=== PATIENT | male | born 1935 | race Caucasian/White ===

== ENCOUNTER → 2016-08-17 | Outpatient (CLI) | payer MEDICARE ==
[~2016-08-17] MED LIST: ARICEPT23 MG PO; ASPI325T6 PO; ASPIRIN 81M81 MG/TA2 PO; CALCIUM 600600 MG PO; CASODEX 50MG TA50 MG PO; CENTRUM SILVER1 TAB; CEPHALEXIN500 M1 PO; COUMADIN 2MG2 MG/TAB PO; COUMADIN 5MG5 MG/TAB PO; ELIQUIS 5MG PO; FLAX OIL1000 MG PO; FLOMAX 0.40.4 MG/CAP PO; LASIX 20MG TABL20 MG PO; LIPITOR 40MG TA40 MG PO; LOVENOX 6060 MG/0.6 SQ; NATURAL E400 IU PO; NORCO 325 MG-51 TAB PO; OXYCONTIN30 MG PO; PRILOSEC 20MG20 MG PO; PROAIR HFA0.09 MG/AC IH; THE MEDICINE S300 M1 PO; TOPROL XL 25MG25 MG PO; VITAMIN D1000 IU PO; VITAMINC1000TA PO; XGEVA120 MG/1.7 SC; XTANDI40 MG PO; ZESTRIL 5MG5 MG PO; ZITHROMAX 250M250 MG PO; ZOLOFT 50MG50 MG PO; [UNRECOGNIZED DRUG - OTHER] IM
== END ==
LOC: COL.RAD 08:45
DX: C61 Malignant neoplasm of prostate (principal); C79.51 Secondary malignant neoplasm of bone
CPT/HCPCS: A9503

== ENCOUNTER 2016-10-16 18:04 | Emergency (ER) | payer MEDICARE ==
[~2016-10-16] VITALS: Ht 185.4 cm; Wt 103.2 kg
[~2016-10-16 18:04] MED LIST changes: -PROAIR HFA0.09 MG/AC IH; -ZITHROMAX 250M250 MG PO; -[UNRECOGNIZED DRUG - OTHER] IM
[2016-10-16 18:08] VITALS: TEMP 101.2
[2016-10-16] MEDS ORDERED: XGEVA120 MG/1.7 SC (18:18)
[2016-10-16 18:28] LABS: HEMATOCRIT 38.1 % (42.0-52.0); HEMOGLOBIN 12.5 g/dl (13.5-18.0); MEAN CELL VOLUME 93 fl (80.0-100.0); MEAN CORPUSCULAR HEMOGLOBIN 30 pg (27.0-31.0); MEAN CORPUSCULAR HGB CONC 33 g/dl (33.0-37.0); MEAN PLATELET VOLUME 10.5 fl (7.4-10.4); PLATELET COUNT 164 K/mm3 (130-400); RED BLOOD COUNT 4.11 M/mm3 (4.20-5.60); REDCELL DISTRIBUTION WIDTH-CV 14.6 % (11.5-14.5); WHITE BLOOD COUNT 5.4 K/mm3 (4.8-10.8)
[2016-10-16] MEDS ORDERED: [UNRECOGNIZED DRUG - OTHER] IM (18:31)
[2016-10-16 18:33] LABS: ADD PATHOLOGY DIFF REVIEW NO
[2016-10-16 18:37] LABS: ALBUMIN 4.2 gm/dL (3.5-5.0); BILIRUBIN,TOTAL 1.1 mg/dL (0.0-1.0); CALCIUM 9.2 mg/dL (8.4-10.2); CREATININE, serum 0.77 mg/dL (0.66-1.25); POTASSIUM 4.3 mmol/L (3.4-5.0); TOTAL PROTEIN 7.7 gm/dL (6.4-8.2)
[2016-10-16 18:49] LABS: TROPONIN-I 0.019 ng/mL (0.000-0.034)
[2016-10-16 18:53] LABS: BAND 1 % (0-10); BASOPHIL 1 % (0-2); NEUTROPHILS 57 % (42.0-75.2); TOTAL CELLS COUNTED 100
[2016-10-16 19:08] LABS: PH 6 (5-8); SQUAMOUS EPITHELIAL None Seen /hpf; URINE APPEARANCE Clear; URINE BACTERIA None Seen /hpf; URINE BILIRUBIN Negative (NEGATIVE); URINE BLOOD 1+ (NEGATIVE); URINE COLOR Yellow; URINE GLUCOSE Negative (NEGATIVE); URINE KETONE Negative (NEGATIVE); URINE UROBILINOGEN Negative (NEGATIVE); URINE WBC 0-2 /hpf
[2016-10-16 19:54] VITALS: BP 126/86; PULSE 84
[2016-10-16] MEDS ORDERED: ZITHROMAX 250M250 MG PO (20:09)
[2016-10-16] MEDS ORDERED: PROAIR HFA0.09 MG/AC IH (20:11)
== END 2016-10-16 20:24 | disposition home or self-care (01) ==
LOC: COL.ER 18:04
PROVIDERS: Emergency Medicine
DX: R06.02 Shortness of breath (principal); I48.91 Unspecified atrial fibrillation; Z95.810 Presence of automatic (implantable) cardiac defibrillator; I50.9 Heart failure, unspecified; Z86.73 Personal history of transient ischemic attack (TIA), and cerebral infarction without residual deficits; Z85.46 Personal history of malignant neoplasm of prostate
CPT/HCPCS: J0696; J7050

== ENCOUNTER → 2017-02-05 | Outpatient (CLI) | payer MEDICARE ==
[~2017-02-05] MED LIST changes: +PROAIR HFA0.09 MG/AC IH; +ZITHROMAX 250M250 MG PO; +[UNRECOGNIZED DRUG - OTHER] IM
== END ==
LOC: COL.RAD 09:16
DX: C79.51 Secondary malignant neoplasm of bone (principal); J90 Pleural effusion, not elsewhere classified; I51.7 Cardiomegaly; M47.812 Spondylosis without myelopathy or radiculopathy, cervical region; M47.814 Spondylosis without myelopathy or radiculopathy, thoracic region; R91.8 Other nonspecific abnormal finding of lung field; K80.20 Calculus of gallbladder without cholecystitis without obstruction; N28.1 Cyst of kidney, acquired; I72.3 Aneurysm of iliac artery; I71.4 Abdominal aortic aneurysm, without rupture; R19.09 Other intra-abdominal and pelvic swelling, mass and lump; M17.12 Unilateral primary osteoarthritis, left knee; M19.011 Primary osteoarthritis, right shoulder; M19.012 Primary osteoarthritis, left shoulder; Z87.81 Personal history of (healed) traumatic fracture; Z95.0 Presence of cardiac pacemaker; Z85.46 Personal history of malignant neoplasm of prostate; Z96.651 Presence of right artificial knee joint; Z90.79 Acquired absence of other genital organ(s)
CPT/HCPCS: A9503; Q9967

== ENCOUNTER → 2017-06-03 | Outpatient (CLI) | payer MEDICARE | LOC: COL.RAD 09:48 | DX: C61 Malignant neoplasm of prostate (principal); C79.51 Secondary malignant neoplasm of bone; J90 Pleural effusion, not elsewhere classified; J98.4 Other disorders of lung; K76.89 Other specified diseases of liver; I71.4 Abdominal aortic aneurysm, without rupture; I72.3 Aneurysm of iliac artery | CPT/HCPCS: J7050; Q9967 ==

== ENCOUNTER 2017-06-20 13:42 | Inpatient (IN) | payer MEDICARE ==
[~2017-06-20] VITALS: Ht 185.4 cm; Wt 105.4 kg
[~2017-06-20 13:42] MED LIST changes: +NATURAL FISH1000 MG PO; -THE MEDICINE S300 M1 PO; +XGEVA120 MG/1.7 SQ; +ZOLADEX SQ; -[UNRECOGNIZED DRUG - OTHER] IM
[2017-06-20 14:16] LABS: BASO # 0.1 (0.0-0.2); BASO % 0.9 % (0.0-2.0); EOS % 0.7 % (0-4.0); GRAN # 3.4 (1.4-6.5); GRAN % 59.3 % (42.2-75.2); HEMATOCRIT 39.1 % (42.0-52.0); HEMOGLOBIN 12.5 g/dl (13.5-18.0); LYMPH # 1.4 (1.2-3.4); LYMPH % 24.2 % (20.0-51.0); MEAN CELL VOLUME 95 fl (80.0-100.0); MEAN CORPUSCULAR HEMOGLOBIN 30 pg (27.0-31.0); MEAN CORPUSCULAR HGB CONC 32 g/dl (33.0-37.0); MEAN PLATELET VOLUME 10.9 fl (7.4-10.4); MONO # 0.8 (0.1-0.6); MONO % 14.5 % (1.7-9.3); PLATELET COUNT 168 K/mm3 (130-400); RED BLOOD COUNT 4.11 M/mm3 (4.20-5.60); WHITE BLOOD COUNT 5.7 K/mm3 (4.8-10.8)
[2017-06-20] MEDS ORDERED: NAMENDA 10MG TA10 MG PO (14:19)
[2017-06-20 14:27] LABS: ADJUSTED CALCIUM 9.1 mg/dL (8.4-10.2); ALBUMIN 4.1 gm/dL (3.5-5.0); BILIRUBIN,TOTAL 1.6 mg/dL (0.0-1.0); CALCIUM 9.2 mg/dL (8.4-10.2); CREATININE, serum 0.9 mg/dL (0.66-1.25); TOTAL PROTEIN 7.6 gm/dL (6.4-8.2)
[2017-06-20 14:35] LABS: INR 1.9 (0.8-3.0); PROTHROMBIN TIME 22.8 SECONDS (9.7-12.8)
[2017-06-20 14:38] LABS: PARTIAL THROMBOPLASTIN TIME 34.4 SECONDS (26.0-37.0); TROPONIN-I 0.026 ng/mL (0.000-0.034)
[2017-06-20 19:13] VITALS: BP 118/83; PULSE 96; TEMP 99.4
[2017-06-21 00:24] VITALS: BP 110/66; PULSE 88; TEMP 98
[2017-06-21 04:01] VITALS: BP 110/57; PULSE 68; TEMP 97.5
[2017-06-21 06:24] LABS: BASO % 0.9 % (0.0-2.0); EOS # 0.1 (0.0-0.7); EOS % 2.4 % (0-4.0); GRAN # 2.5 (1.4-6.5); GRAN % 54.7 % (42.2-75.2); HEMATOCRIT 35.4 % (42.0-52.0); HEMOGLOBIN 11.1 g/dl (13.5-18.0); LYMPH # 1.2 (1.2-3.4); LYMPH % 27.4 % (20.0-51.0); MEAN CELL VOLUME 97 fl (80.0-100.0); MEAN CORPUSCULAR HEMOGLOBIN 30 pg (27.0-31.0); MEAN CORPUSCULAR HGB CONC 31 g/dl (33.0-37.0); MONO # 0.6 (0.1-0.6); MONO % 14.2 % (1.7-9.3); PLATELET COUNT 137 K/mm3 (130-400); RED BLOOD COUNT 3.67 M/mm3 (4.20-5.60); WHITE BLOOD COUNT 4.5 K/mm3 (4.8-10.8)
[2017-06-21 06:49] LABS: ALBUMIN 3.2 gm/dL (3.5-5.0); BILIRUBIN,TOTAL 1.4 mg/dL (0.0-1.0); CALCIUM 8.4 mg/dL (8.4-10.2); CREATININE, serum 0.88 mg/dL (0.66-1.25); MAGNESIUM 1.9 mg/dL (1.6-2.3); POTASSIUM 3.5 mmol/L (3.4-5.0); TOTAL PROTEIN 6.2 gm/dL (6.4-8.2)
[2017-06-21 07:13] LABS: TSH w REFLEX 2.82 uIU/mL (0.465-4.680)
[2017-06-21 07:23] VITALS: BP 105/62; PULSE 84; TEMP 98.4
[2017-06-21 11:59] VITALS: BP 118/60; PULSE 119; TEMP 97.9
[2017-06-21] MEDS ORDERED: TOPROL XL 25MG25 MG PO (12:27)
[2017-06-21] MEDS ORDERED: K-TAB10 PO (12:29)
[2017-06-21 16:06] VITALS: BP 120/80; PULSE 111; TEMP 97.7
[2017-06-25] MEDS ORDERED: ZESTRIL 10MG10 MG PO (13:48)
== END 2017-06-21 17:13 | disposition home or self-care (01) | DRG 291 ==
LOC: COL.ER 13:42 → MEDICAL 14:53
PROVIDERS: Emergency Medicine; Nurse Practitioner Family
DX: I11.0 Hypertensive heart disease with heart failure (principal); L89.153 Pressure ulcer of sacral region, stage 3; C78.7 Secondary malignant neoplasm of liver and intrahepatic bile duct; C79.51 Secondary malignant neoplasm of bone; I50.20 Unspecified systolic (congestive) heart failure; I48.2 Chronic atrial fibrillation; C61 Malignant neoplasm of prostate; E78.5 Hyperlipidemia, unspecified; K21.9 Gastro-esophageal reflux disease without esophagitis; F03.90 Unspecified dementia, unspecified severity, without behavioral disturbance, psychotic disturbance, mood disturbance, and anxiety; Z95.5 Presence of coronary angioplasty implant and graft; Z95.0 Presence of cardiac pacemaker; Z87.891 Personal history of nicotine dependence
CPT/HCPCS: 99223-AI; 99239; J1650; J1940; J2270

== ENCOUNTER 2017-07-21 02:25 | Emergency (ER) | payer MEDICARE ==
[~2017-07-21] VITALS: Ht 177.8 cm; Wt 127.3 kg
[~2017-07-21 02:25] MED LIST changes: +K-TAB10 PO; +NAMENDA 10MG TA10 MG PO; +ZESTRIL 10MG10 MG PO
[2017-07-21 02:35] VITALS: BP 89/57; PULSE 80
== END 2017-07-21 05:10 | disposition expired ==
LOC: COL.ER 02:25
DX: I46.9 Cardiac arrest, cause unspecified (principal); I50.9 Heart failure, unspecified; Z95.0 Presence of cardiac pacemaker; Z79.82 Long term (current) use of aspirin; Z79.01 Long term (current) use of anticoagulants
CPT/HCPCS: J0171